=== PATIENT | male | born 1995 | race Caucasian/White ===

== ENCOUNTER 2022-01-20 13:06 | Emergency (ER) | payer SELFPAY ==
[2022-01-20 13:29] VITALS: BP 126/89; PULSE 87; TEMP 37.2; O2SAT 97
[2022-01-20 13:42] LABS: Amphetamine Screen Urine Negative (Negative); Barbiturate Screen Urine Negative (Negative); Benzodiazepines Screen Urine Negative (Negative); Cannabinoid Screen Urine Negative (Negative); Cocaine Screen Urine Negative (Negative); Methadone Screen Urine Negative (Negative); Methamphetamines Screen Urine Negative (Negative); Opiate Screen Urine Negative (Negative); Oxycodone Screen Urine Negative (Negative); Phencyclidine Screen Urine Negative (Negative); Tricyclic Antidepressant Urine Negative (Negative)
--- NOTE | 2022-01-20 13:42 | ED.PSYCH ---
HPI - Psych General Chief Complaint: Psychiatric Problem/Disorder Stated Complaint: Suicidal Ideation Time Seen by Provider: 01/20/22 13:18 History of Present Illness HPI Narrative: This 26-year-old male comes in reporting suicidal ideations and plans. He states that he went to a bridge in [place] and was planning to jump off of it but changed his mind as he was climbing over the rail. He states that he has had suicidal thoughts and depression for many years. He grew up in [facility] and when he was about 14 years old he attempted to hang himself but the rope broke. He comes in with his who translates for him. He does understand some Slovenian. He reports auditory hallucinations. These are not new for him. He states that he is not on any medications. He does use alcohol frequently and excessively. He states that his last drink was yesterday. He has had some withdrawal symptoms in the past but does not feel any such symptoms currently. He states that he is otherwise in good health. Related Data Previous Rx's Medication Instructions Recorded lorazepam 1 mg tablet (Ativan) 1 mg PO TID PRN #14 tabs 01/20/22 quetiapine 50 mg tablet (Seroquel) 50 mg PO QHS #30 tabs 01/20/22 Allergies Allergy/AdvReac Type Severity Reaction Status Date / Time No Known Drug Allergies Allergy Verified 01/20/22 13:33 Review of Systems Status of ROS: Reports: 10 or more systems reviewed and unremarkable except as noted in History and below Narrative: Constitutional: No fevers, no weight gain or loss. Eyes: No discharge. No vision changes. HENT: No congestion, no sore throat, no ear pain. Cardiovascular: No chest pain, no palpitations. Respiratory: No shortness of breath, no wheezes, no cough. Gastrointestinal: No abdominal pain, no vomiting, no diarrhea. Genitourinary: No dysuria, no hematuria. Musculoskeletal: Normal range of motion. Skin: No rashes, no pruritis. Neurological: No dizziness, weakness, sensory change, speech change. Endo/Heme/Allergies: No bruising or bleeding. No polydipsia. Pysch: Suicidal thoughts and plans. Anxiety and depression. Occasional insomnia. All other systems reviewed and are negative. PFSH PFSH Social History Smoking Status: Current some day smoker What tobacco products do you use: cigarettes How often do you have a drink containing alcohol: 4 or more times a week How many standard drinks containing alcohol do you have on a typical day: 10 or more How often do you have six or more drinks on one occasion: Daily or almost daily AUDIT-C Alcohol total score: 12 Non-prescribed substance use: denies use Exam Narrative: Exam Narrative: Constitutional: Well-developed, well-nourished, no acute distress. HEENT: Normocephalic, atraumatic. Neck: Normal range of motion. Nontender. Supple. Heart: Regular. No murmurs. Normal rate. Intact distal pulses. Lungs: Clear to auscultation. No chest discomfort. No wheezes, rhonchi, or rales. Abdomen: Normal bowel sounds. Nontender. No rebound tenderness. Genitalia: Deferred. Back: No midline tenderness. Normal range of motion. Extremities: Normal range of motion. No injury. Skin: Intact. No rash. Warm. No erythema or pallor. Neurologic: No altered sensation. No weakness. Alert and oriented. Psychiatric: Cooperative and pleasant. Depression and anxiety with suicidal ideation and plans. He reports auditory hallucinations. Nursing notes and vitals signs are reviewed. Const: Vital Signs, click to edit/add: Vital Signs - 24 hr 01/20/22 13:29 Temperature 98.9 F Pulse Rate [Left] 87 Blood Pressure [Ri ght Upper Arm] 126/89 Pulse Oximetry 97 Oxygen Delivery Me thod Room Air Course Vital Signs Vital signs: Initial Vital Signs Temperature 98.9 F 01/20/22 13:29 Temperature Source Temporal Artery Scan 01/20/22 13:29 Pulse Rate 87 01/20/22 13:29 Blood Pressure 126/89 01/20/22 13:29 Blood Pressure Mean 101 01/20/22 13:29 Blood Pressure Position Supine 01/20/22 13:29 Pulse Oximetry 97 01/20/22 13:29 Oxygen Delivery Method 01/20/22 13:29 Vital Signs Temperature 98.9 F 01/20/22 13:29 Pulse Rate 87 01/20/22 13:29 Blood Pressure 126/89 01/20/22 13:29 Pulse Oximetry 97 01/20/22 13:29 Oxygen Delivery Method 01/20/22 13:29 Temperature 98.9 F 01/20/22 13:29 Pulse Rate 87 01/20/22 13:29 Blood Pressure 126/89 01/20/22 13:29 Pulse Oximetry 97 01/20/22 13:29 Oxygen Delivery Method 01/20/22 13:29 MDM - Psych MDM Narrative Medical decision making narrative: This patient comes in for psychiatric evaluation reporting suicidal thoughts and frequent abuse of alcohol. A tele health mental assessment was completed. This patient does not have citizenship yet here. He has a with him but he is immigrating from [facility]. Arrangements are being made for follow-up plans for him. 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 He is not on any medications and would benefit from such. 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 I prescribed Seroquel 50 mg daily. I also prescribed some tablets of Ativan as he will likely have some withdrawal symptoms from alcohol. I discussed these matters with the patient and his and stressed the importance of not taking alcohol while on these medicines. He understands that he can return here or follow up if not improving or as needed. He should get information in a couple days regarding therapy options and treatment options. Lab Data Labs: Lab Results 01/20/22 01/20/22 01/20/22 Range/Units 13:05 13:25 13:50 WBC 7.55 (4.50-11.00) K/uL RBC 4.68 (4.30-5.90) m/uL Hgb 14.8 (13.5-17.5) gm/dL Hct 42.3 (37.0-53.0) % MCV 90 (80-100) fL MCH 32 (26-34) pg MCHC 35 (32-36) gm/dL RDW Coeff of Job 12.1 (11.5-15.5) % Plt Count 227 (140-440) K/uL Neut % (Auto) 50.7 (42.0-72.0) % Lymph % (Auto) 35.5 (20-44) % Meagher % (Auto) 8.3 (0.0-11.0) % Eos % (Auto) 4.4 (0.0-7.0) % Baso % (Auto) 0.7 (0.0-3.0) % Neut # (Auto) 3.83 (1.7-7.0) K/uL Lymph # (Auto) 2.68 (0.90-2.90) K/uL Meagher # (Auto) 0.60 (0.00-0.90) K/UL Eos # (Auto) 0.33 (0.00-0.50) K/uL Baso # (Auto) 0.05 (0.00-0.30) K/uL Abs Immat Gran (auto) 0.03 (0.00-0.30) K/uL Imm/Tot Granulo (auto) 0.4 % Sodium (135-149) mmol/L Potassium (3.6-5.1) mmol/L Chloride (96-114) mmol/L Carbon Dioxide (20-32) mmol/L BUN (5-24) mg/dL Creatinine (0.5-1.5) mg/dL Estimated GFR ml/min Glucose (60-115) mg/dL Calcium (8.4-10.6) mg/dL Urine Opiates Screen Negative (Negative) Ur Oxycodone Screen Negative (Negative) Urine Methadone Screen Negative (Negative) Ur Propoxyphene Screen Negative (Negative) Acetaminophen (10.0-30.0) ug/mL Ur Barbiturates Screen Negative (Negative) U Tricyclic Antidepress Negative (Negative) Ur Phencyclidine Scrn Negative (Negative) Ur Amphetamines Screen Negative (Negative) U Methamphetamines Scrn Negative (Negative) U Benzodiazepines Scrn Negative (Negative) Urine Cocaine Screen Negative (Negative) U Marijuana (THC) Screen Negative (Negative) Ur Drug Screen Comment See Note Ethyl Alcohol (0.01-0.03) % SARS-CoV-2 (PCR) Negative SARS-CoV-2 (Negative) 01/20/22 Range/Units 13:50 WBC (4.50-11.00) K/uL RBC (4.30-5.90) m/uL Hgb (13.5-17.5) gm/dL Hct (37.0-53.0) % MCV (80-100) fL MCH (26-34) pg MCHC (32-36) gm/dL RDW Coeff of Job (11.5-15.5) % Plt Count (140-440) K/uL Neut % (Auto) (42.0-72.0) % Lymph % (Auto) (20-44) % Meagher % (Auto) (0.0-11.0) % Eos % (Auto) (0.0-7.0) % Baso % (Auto) (0.0-3.0) % Neut # (Auto) (1.7-7.0) K/uL Lymph # (Auto) (0.90-2.90) K/uL Meagher # (Auto) (0.00-0.90) K/UL Eos # (Auto) (0.00-0.50) K/uL Baso # (Auto) (0.00-0.30) K/uL Abs Immat Gran (auto) (0.00-0.30) K/uL Imm/Tot Granulo (auto) % Sodium 139 (135-149) mmol/L Potassium 3.8 (3.6-5.1) mmol/L Chloride 106 (96-114) mmol/L Carbon Dioxide 23 (20-32) mmol/L BUN 12 (5-24) mg/dL Creatinine 0.7 (0.5-1.5) mg/dL Estimated GFR 130 ml/min Glucose 123 H (60-115) mg/dL Calcium 9.1 (8.4-10.6) mg/dL Urine Opiates Screen (Negative) Ur Oxycodone Screen (Negative) Urine Methadone Screen (Negative) Ur Propoxyphene Screen (Negative) Acetaminophen < 10.0 L (10.0-30.0) ug/mL Ur Barbiturates Screen (Negative) U Tricyclic Antidepress (Negative) Ur Phencyclidine Scrn (Negative) Ur Amphetamines Screen (Negative) U Methamphetamines Scrn (Negative) U Benzodiazepines Scrn (Negative) Urine Cocaine Screen (Negative) U Marijuana (THC) Screen (Negative) Ur Drug Screen Comment Ethyl Alcohol < 0.01 L (0.01-0.03) % SARS-CoV-2 (PCR) (Negative) Discharge Plan Discharge Clinical Impression: Alcohol abuse, Depression Patient Disposition: Home w/ Parent or Adult Condition: Unchanged Additional Instructions: Take medication as prescribed. Follow up with MD or therapist as arranged. Return if worsening symptoms occur. Prescriptions: New quetiapine [Seroquel] 50 mg tablet 50 mg PO QHS Qty: 30 2RF lorazepam [Ativan] 1 mg tablet 1 mg PO TID PRNQty: 14 0RF Follow Up/Referrals: Provider,Not a Local [Primary Care Provider] - Stand Alone Forms: too.me Info Instructions
[2022-01-20 13:56] LABS: Basophils Absolute Auto 0.05 K/uL (0.00-0.30); Basophils Percent Auto 0.7 % (0.0-3.0); Eosinophils Absolute Auto 0.33 K/uL (0.00-0.50); Eosinophils Percent Auto 4.4 % (0.0-7.0); Hematocrit 42.3 % (37.0-53.0); Hemoglobin* 14.8 gm/dL (13.5-17.5); Immature Granulocytes Abs Auto 0.03 K/uL (0.00-0.30); Immature Granulocytes Pct Auto 0.4 %; Lymphocytes Absolute Auto 2.68 K/uL (0.90-2.90); Lymphocytes Percent Auto 35.5 % (20-44); Mean Corpuscular HGB Conc 35 gm/dL (32-36); Mean Corpuscular Hemoglobin 32 pg (26-34); Mean Corpuscular Volume 90 fL (80-100); Monocytes Percent Auto 8.3 % (0.0-11.0); Neutrophils Absolute Auto 3.83 K/uL (1.7-7.0); Neutrophils Percent Auto 50.7 % (42.0-72.0); Platelet Count* 227 K/uL (140-440); RDW Coefficient of Variation % 12.1 % (11.5-15.5); Red Blood Count 4.68 m/uL (4.30-5.90); White Blood Count* 7.55 K/uL (4.50-11.00)
[2022-01-20 14:14] LABS: Chloride* 106 mmol/L (96-114); Potassium* 3.8 mmol/L (3.6-5.1); Sodium* 139 mmol/L (135-149)
[2022-01-20 14:16] LABS: Creatinine* 0.7 mg/dL (0.5-1.5); Estimated Glomerular Filt Rate 130 ml/min
[2022-01-20 14:17] LABS: Blood Urea Nitrogen* 12 mg/dL (5-24); Calcium* 9.1 mg/dL (8.4-10.6); Carbon Dioxide* 23 mmol/L (20-32); Glucose* 123 mg/dL (60-115)
[2022-01-20 14:20] LABS: Acetaminophen* < 10.0 ug/mL (10.0-30.0); Ethanol* < 0.01 % (0.01-0.03)
[2022-01-20 14:28] LABS: SARS PCR* Negative SARS-CoV-2 (Negative)
[2022-01-20 14:59] LABS: Slide Review Reflex No
[2022-01-20 15:42] VITALS: BP 124/91; PULSE 81; O2SAT 98
== END 2022-01-20 15:48 | disposition home or self-care (01) ==
PROVIDERS: Emergency Provider Emergency Medicine Emergency Medical Services
DX: F10.10 Alcohol abuse, uncomplicated (principal); F32.A Depression, unspecified
CPT/HCPCS: 36415; 80048; 80143; 80306; 82077; 84443; 85025; 87635; 99283; 99284; 99285